=== PATIENT | male | born 1975 | race Caucasian/White ===

== ENCOUNTER 2020-04-06 13:31 | Emergency (ER) | payer BC ==
[~2020-04-06] VITALS: Ht 188 cm; Wt 147.7 kg
[2020-04-06 13:43] VITALS: TEMP 101.1
[2020-04-06 14:29] LABS: BASO % 0.4 % (0.0-2.0); GRAN # 5.3 (1.4-6.5); GRAN % 72.2 % (42.2-75.2); HEMATOCRIT 45.3 % (42.0-52.0); HEMOGLOBIN 16.1 g/dl (13.5-18.0); LYMPH # 1.5 (1.2-3.4); MEAN CELL VOLUME 90 fl (80.0-100.0); MEAN CORPUSCULAR HEMOGLOBIN 32 pg (27.0-31.0); MEAN CORPUSCULAR HGB CONC 36 g/dl (33.0-37.0); MEAN PLATELET VOLUME 10.2 fl (7.4-10.4); MONO # 0.5 (0.1-0.6); MONO % 7.1 % (1.7-9.3); PLATELET COUNT 210 K/mm3 (130-400); RED BLOOD COUNT 5.05 M/mm3 (4.20-5.60); REDCELL DISTRIBUTION WIDTH-CV 12.3 % (11.5-14.5)
[2020-04-06 14:37] LABS: ALANINE AMINOTRANSFERASE 76 U/L (4-49); ALBUMIN 4.3 gm/dL (3.5-5.0); ALKALINE PHOSPHATASE 72 U/L (50-136); ANION GAP 8 mmol/L (7-16); AST,SGOT 68 U/L (15-37); BILIRUBIN,TOTAL 0.7 mg/dL (0.0-1.0); BLOOD UREA NITROGEN 10 mg/dL (9-20); CALCIUM 8.7 mg/dL (8.4-10.2); CARBON DIOXIDE 26 mmol/L (22-30); CHLORIDE 99 mmol/L (98-107); CREATININE, serum 1.17 (0.66-1.25); GLUCOSE 119 mg/dL (74-106); POTASSIUM 4.1 mmol/L (3.4-5.0); SODIUM 133 mmol/L (137-145); TOTAL PROTEIN 7.6 gm/dL (6.4-8.2)
[2020-04-06 14:51] LABS: TROPONIN-I < 0.012 ng/mL (0.000-0.035)
[2020-04-06 16:28] VITALS: BP 148/90; PULSE 89
== END 2020-04-06 16:29 | disposition home or self-care (01) ==
LOC: COL.ER 13:31
PROVIDERS: Nurse Practitioner
DX: U07.1 COVID-19 (principal)

== ENCOUNTER 2020-04-08 14:49 | Inpatient (IN) | payer BC ==
[~2020-04-08] VITALS: Ht 188 cm; Wt 150.5 kg
--- NOTE | 2020-04-08 01:22 | NUR ---
PT AWAKE. NO RESP DISTRESS. PT ORIENTED. PT REPORTED ALT LEVEL OF MENTAL STATUS FOR SEVERAL DAYS. AFEBRILE NOW.
[2020-04-08 15:49] LABS: BASO % 0.3 % (0.0-2.0); EOS % 0.2 % (0-4.0); GRAN # 4.3 (1.4-6.5); GRAN % 72.8 % (42.2-75.2); HEMATOCRIT 41.8 % (42.0-52.0); LYMPH # 1.2 (1.2-3.4); LYMPH % 20.5 % (20.0-51.0); MEAN CELL VOLUME 90 fl (80.0-100.0); MEAN CORPUSCULAR HEMOGLOBIN 32 pg (27.0-31.0); MEAN CORPUSCULAR HGB CONC 36 g/dl (33.0-37.0); MEAN PLATELET VOLUME 10.6 fl (7.4-10.4); MONO # 0.4 (0.1-0.6); MONO % 5.9 % (1.7-9.3); PLATELET COUNT 183 K/mm3 (130-400); RED BLOOD COUNT 4.66 M/mm3 (4.20-5.60); REDCELL DISTRIBUTION WIDTH-CV 12.3 % (11.5-14.5)
[2020-04-08 15:58] LABS: BILIRUBIN,TOTAL 0.5 mg/dL (0.0-1.0); CALCIUM 8.2 mg/dL (8.4-10.2); CREATININE, serum 1.06 (0.66-1.25); POTASSIUM 4.1 mmol/L (3.4-5.0)
--- NOTE | 2020-04-08 19:45 | NUR ---
ADMITTED FROM ER TO ROOM 319 PER CART W/MASK ON. AWAKE ALERT & ORIENTED. NO RESP DISTRESS. TRANSFERRED INTO BED. DIEGO MEMBRENO REPORTED TO THIS NURSE.
[2020-04-08] MEDS ORDERED: IBU600 MG PO (22:09)
[2020-04-08 22:10] VITALS: BP 132/72; PULSE 85; TEMP 100.1
--- NOTE | 2020-04-08 22:34 | NUR ---
DR COLON HERE TO VISIT WITH PT. PT REMAINS IN COVID UNIT. NS AT 100CC/HR.
[2020-04-08 23:51] VITALS: BP 146/79; PULSE 71; TEMP 97.5
[2020-04-09] VITALS (7 sets, daily range): BP systolic 134–152; BP diastolic 57–91; PULSE 64–84; TEMP 97.5–100.7
--- NOTE | 2020-04-09 00:24 | NUR ---
PT SLEEPING. NO RESP DISTRESS.
--- NOTE | 2020-04-09 03:25 | NUR ---
TELEMETRY CALLED. SGORT RUN OF SVT. CHECKED PT. WAKES EASILY. NO COMPLAINTS.
--- NOTE | 2020-04-09 05:49 | NUR ---
PT HAS HAD NO N/V OR DIARRHEA SINCE ADMIT. MENTAL STATUS CLEAR AND ORIENTED. HAS BEEN RESTING WELL. NO COMPLAINTS.
[2020-04-09 07:01] LABS: BASO % 0.2 % (0.0-2.0); GRAN # 3.1 (1.4-6.5); GRAN % 67.9 % (42.2-75.2); HEMATOCRIT 42.3 % (42.0-52.0); HEMOGLOBIN 14.6 g/dl (13.5-18.0); LYMPH # 1.1 (1.2-3.4); LYMPH % 24.5 % (20.0-51.0); MEAN CELL VOLUME 91 fl (80.0-100.0); MEAN CORPUSCULAR HEMOGLOBIN 32 pg (27.0-31.0); MEAN CORPUSCULAR HGB CONC 35 g/dl (33.0-37.0); MEAN PLATELET VOLUME 11.3 fl (7.4-10.4); MONO # 0.3 (0.1-0.6); MONO % 7.2 % (1.7-9.3); PLATELET COUNT 220 K/mm3 (130-400); RED BLOOD COUNT 4.63 M/mm3 (4.20-5.60); REDCELL DISTRIBUTION WIDTH-CV 12.4 % (11.5-14.5)
[2020-04-09 07:14] LABS: CALCIUM 8.1 mg/dL (8.4-10.2); CREATININE, serum 0.89 (0.66-1.25); POTASSIUM 4.3 mmol/L (3.4-5.0)
--- NOTE | 2020-04-09 12:17 | NUR ---
SW update: Attempted call to spouse for assessment Cristiane , no answer. Unable to chat with patient directly. Will attempt again.
--- NOTE | 2020-04-09 13:47 | NUR ---
Plan to return home with and children. Assessment: SW obtained assessment via phone. Patient reports that he resides locally with Cristiane . Patient reports that he has supports with his , denies having any DME use or a pcp. Patient reports that he uses [facility]. Patient indicated that he is starting primary care in April with [facility], Patient reports that he was told that he may need oxygen when he goes home. will help with transports. Declines any concerns with needed hhs. SW educated on supports and services. Will continue to monitor.
[2020-04-10 03:30] VITALS: BP 147/87; PULSE 90; TEMP 103.3
--- NOTE | 2020-04-10 04:16 | NUR ---
Pt has had a difficult night. He has had a headache, body aches, and general fatigue. This patient's o2 requirements have increased tonight from 2L to 5L. This patient is very tearful, and wants to be home. He states that his whole body hurts. He did get a [place] for the pain in his back, and overall pain. Pt is breathing poorly. His breaths are unequal, shallow and fast. This RN did educate him on the deep breathing and coughing he should be doing to combat the PNA. The pt has not had any BM's this shift, but has had good urinary output. Pt is very thirsty, and contiues to ask for ice and water. He has had chills, and his T-max has been 103.3. The o2 requirements are concerning, and this RN will continue to monitor, Call light is within reach, and pt has water on bedside table. No further concerns at this time.
--- NOTE | 2020-04-10 07:00 | NUR ---
Report received from HASEEB Yañez. Will resume care of pt at this time.
[2020-04-10 07:41] LABS: BASO % 0.2 % (0.0-2.0); GRAN # 9.4 (1.4-6.5); GRAN % 81.6 % (42.2-75.2); HEMATOCRIT 39.2 % (42.0-52.0); HEMOGLOBIN 13.8 g/dl (13.5-18.0); LYMPH # 1.5 (1.2-3.4); LYMPH % 13.1 % (20.0-51.0); MEAN CELL VOLUME 91 fl (80.0-100.0); MEAN CORPUSCULAR HEMOGLOBIN 32 pg (27.0-31.0); MEAN CORPUSCULAR HGB CONC 35 g/dl (33.0-37.0); MONO # 0.6 (0.1-0.6); MONO % 4.8 % (1.7-9.3); PLATELET COUNT 256 K/mm3 (130-400); REDCELL DISTRIBUTION WIDTH-CV 12.6 % (11.5-14.5)
[2020-04-10 07:52] LABS: ALBUMIN 3.5 gm/dL (3.5-5.0); BILIRUBIN,TOTAL 0.7 mg/dL (0.0-1.0); CREATININE, serum 1.03 (0.66-1.25); POTASSIUM 3.7 mmol/L (3.4-5.0); TOTAL PROTEIN 6.4 gm/dL (6.4-8.2)
[2020-04-10 08:46] VITALS: BP 121/67; PULSE 80; TEMP 99.2
--- NOTE | 2020-04-10 09:00 | NUR ---
Assessment charted. Pt increased 02 to 5LNC to maintain saturations of 91%. Pt doing well but has headache at 6/10, PRN pain meds given and cough medicine given. Pt resting in bed, states he gets short of breath when getting up to bathroom. INT to RA/C bothersome, called [facility] and they are busy most of day. Facetime in room with , requesting occupational therapist called [employer] as well. Pt skin is flushed, temp this am and 99.2. Will continue to monitor.
[2020-04-10 11:33] VITALS: BP 112/73; PULSE 90; TEMP 101.5
--- NOTE | 2020-04-10 14:11 | NUR ---
Initial help; Nurse called for patient requesting "Anointing of the sick." visited patient.
[2020-04-10 15:52] VITALS: BP 144/82; PULSE 81; TEMP 98.6
--- NOTE | 2020-04-10 16:30 | NUR ---
PATIENT WAS CALM IN THE ROOM,DENIES PAIN.PATIENT DENIES TO HAVE A BATH AT THIS TIME.ENCOURAGED TO TAKE ORALLY.INFORMED ABOUT CONVALESCENT PLASMA.NO CONCERNS AT THIS TIME.
--- NOTE | 2020-04-10 17:30 | NUR ---
Pt has had a good day. Was able to break fever this afternoon, diaphoretic. 02 at 5L NC. Resting in bed, able to take in some PO. Denies N/V/D. Will give report to nightshift nurse who will resume care.
--- NOTE | 2020-04-10 19:24 | NUR ---
PT LAYING IN BED AT THIS TIME. ON 5L NC, SATTING 93%. PT HAS NO COMPLAINTS. TOOK SOME COUGH MEDICATIONS. CALL LIGHT WITHIN REACH, NO FURTHER CONCERNS.
[2020-04-10 19:30] VITALS: BP 134/83; PULSE 77; TEMP 100.1
--- NOTE | 2020-04-10 21:54 | NUR ---
PT IS RESTING IN BED AND DENIES ANY NEEDS AT THIS TIME. CALL LIGHT IS WITHIN REACH.
[2020-04-11] VITALS (7 sets, daily range): BP systolic 121–156; BP diastolic 73–99; PULSE 62–79; TEMP 98.1–99.8
[2020-04-11 06:02] LABS: GRAN % 76.1 % (42.2-75.2); HEMATOCRIT 38.4 % (42.0-52.0); HEMOGLOBIN 13.5 g/dl (13.5-18.0); LYMPH # 1.1 (1.2-3.4); LYMPH % 14.5 % (20.0-51.0); MEAN CELL VOLUME 90 fl (80.0-100.0); MEAN CORPUSCULAR HEMOGLOBIN 32 pg (27.0-31.0); MEAN CORPUSCULAR HGB CONC 35 g/dl (33.0-37.0); MEAN PLATELET VOLUME 10.7 fl (7.4-10.4); MONO # 0.7 (0.1-0.6); MONO % 8.9 % (1.7-9.3); PLATELET COUNT 284 K/mm3 (130-400); RED BLOOD COUNT 4.27 M/mm3 (4.20-5.60); REDCELL DISTRIBUTION WIDTH-CV 12.6 % (11.5-14.5)
[2020-04-11 06:12] LABS: CALCIUM 8.4 mg/dL (8.4-10.2); CREATININE, serum 0.69 (0.66-1.25); POTASSIUM 3.7 mmol/L (3.4-5.0)
--- NOTE | 2020-04-11 09:30 | NUR ---
Assessment complete. Patient sitting up in bed on entry, coughing and requesting pain medication. PRN pain medication provided. Patient states that he had a good night but doesnt feel the greatest this morning. No fever and satting well on current oxygen level. Minimal pain, headache related to the coughing, pt states he woud rather just take cough medication at this point. IV site CD&I, flushed better positionally. No othr needs. Will continue to monitor. Call light is in reach.
--- NOTE | 2020-04-11 18:07 | NUR ---
Patient had uneventful shift. Remains on 5L of O2. States he feels better than he did this morning. Denied need for cough medication when asked at this time. Headache was reported mid day and [place] was given, this helped. No complaints since. Call light is in reach.
[2020-04-12 03:53] VITALS: BP 140/80; PULSE 65; TEMP 98.7
[2020-04-12 06:57] LABS: BASO % 0.1 % (0.0-2.0); EOS % 0.1 % (0-4.0); GRAN # 6.1 (1.4-6.5); GRAN % 72.8 % (42.2-75.2); HEMOGLOBIN 13.9 g/dl (13.5-18.0); LYMPH # 1.5 (1.2-3.4); LYMPH % 17.7 % (20.0-51.0); MEAN CELL VOLUME 92 fl (80.0-100.0); MEAN CORPUSCULAR HEMOGLOBIN 32 pg (27.0-31.0); MEAN CORPUSCULAR HGB CONC 35 g/dl (33.0-37.0); MEAN PLATELET VOLUME 10.6 fl (7.4-10.4); MONO # 0.7 (0.1-0.6); MONO % 8.6 % (1.7-9.3); PLATELET COUNT 299 K/mm3 (130-400); RED BLOOD COUNT 4.35 M/mm3 (4.20-5.60); REDCELL DISTRIBUTION WIDTH-CV 12.6 % (11.5-14.5)
[2020-04-12 07:07] LABS: CALCIUM 8.2 mg/dL (8.4-10.2); CREATININE, serum 0.74 (0.66-1.25); POTASSIUM 3.7 mmol/L (3.4-5.0)
[2020-04-12 08:24] VITALS: BP 160/85; PULSE 70; TEMP 98
--- NOTE | 2020-04-12 11:30 | NUR ---
Assessment complete. Patient sitting up in bed at this time, coughing, requesting PRN cough medications, this was proivded to him. No complaints of pain at this time. States he would like to sit up for his meals, told him this was doable. Pt ambulated well to the chair for breakfast, dyspnea while ambulating and minimal dizziness. He also requested a shower today, this will get done. no other needs. Call light is in reach.
[2020-04-12 13:05] VITALS: BP 150/88; PULSE 71; TEMP 99
[2020-04-12 16:52] VITALS: BP 149/89; PULSE 64; TEMP 97.7
--- NOTE | 2020-04-12 18:20 | NUR ---
Patient had a good day. Up to the chair multiple times through the day. He is eager to get the convalescent plasma. Headache was his only complaint, CODIE oshea was helpful with this. No other needs were expressed. Call light is in reach.
[2020-04-12 20:33] VITALS: BP 142/81; PULSE 73; TEMP 97.5
[2020-04-13] VITALS (7 sets, daily range): BP systolic 126–148; BP diastolic 72–94; PULSE 61–80; TEMP 97.5–98.8
[2020-04-13 06:20] LABS: HEMATOCRIT 39.9 % (42.0-52.0); HEMOGLOBIN 13.8 g/dl (13.5-18.0); MEAN CELL VOLUME 91 fl (80.0-100.0); MEAN CORPUSCULAR HEMOGLOBIN 31 pg (27.0-31.0); MEAN CORPUSCULAR HGB CONC 35 g/dl (33.0-37.0); MEAN PLATELET VOLUME 10.1 fl (7.4-10.4); PLATELET COUNT 381 K/mm3 (130-400); REDCELL DISTRIBUTION WIDTH-CV 12.3 % (11.5-14.5)
[2020-04-13 06:31] LABS: CALCIUM 8.2 mg/dL (8.4-10.2); CREATININE, serum 0.74 (0.66-1.25); POTASSIUM 3.8 mmol/L (3.4-5.0)
[2020-04-13 07:33] LABS: BAND 4 % (0-10); EOSINOPHIL 1 % (0-4); LYMPHOCYTE 24 % (20.0-51.0); METAMYELOCYTE 1 % (0-0); NEUTROPHILS 63 % (42.0-75.2); PLATELET ESTIMATE NORMAL (NORMAL)
--- NOTE | 2020-04-13 09:00 | NUR ---
Assessment complete. Pt sitting up in chair, A&O x 4, denies pain at this time, reports "feeling ok, but having occasional moments of what I think is anxiety." O2 at 5 L/min via NC. PICC line to right upper arm without s/s of complications. No further needs reported. Call light in reach.
[2020-04-13 11:58] LABS: ALBUMIN 3.2 gm/dL (3.5-5.0); BILIRUBIN UNCONJUGATED 0.4 mg/dL (0.0-1.1); BILIRUBIN,DIRECT 0.2 mg/dL (0.0-0.4); BILIRUBIN,TOTAL 0.6 mg/dL (0.0-1.0); TOTAL PROTEIN 6.4 gm/dL (6.4-8.2)
--- NOTE | 2020-04-13 12:30 | NUR ---
Pt reports waking from slight rest and feeling increased headache and slightly harder to breathe, requesting O2 being increased back to where it was this morning. Currently O2 at 4 L/min via NC and sats 88%. O2 increased to 5 L/min and pt instructed to take deep breaths in through nose. After some time O2 sats increase to 95% and stabilize there. PRN cough medication administered per request. No further needs reported. Call light in reach.
--- NOTE | 2020-04-13 15:28 | NUR ---
Pt's called and updated per pt's request. Questions invited and answered.
--- NOTE | 2020-04-13 20:25 | NUR ---
Patient assessed at this time. Alert and oriented x 4, and able to make needs known. Reported level 6 pain to right side. Given PRN [place] for pain. PICC to TAYLOR. Denies SOB and dyspnea. Continues on oxygen at 5 L/min via NC. LS CTA in upper lobes, diminished in lower. Respirations even and unlabored. HRR. Telemetry in place: normal sinus. Capillary refill less than 3 seconds. Non-tenting skin turgor. BSAx4. Abdomen soft and non-tender. No edema. Voices no questions, needs, or concerns at this time. Given cough medicine as requseted for cough. Continues on contact/droplet isolation for Covid.
[2020-04-14 04:25] VITALS: BP 146/86; PULSE 66; TEMP 97.6
--- NOTE | 2020-04-14 06:44 | NUR ---
Patient received PRN cough medicine with codeine about every 4 hours during the night. Received PRN Mode once during the night. Continues on oxygen at 5 L/min via NC. Voices no further questions, needs, or concerns at this time. Resting in bed wtih call light within reach.
[2020-04-14 07:55] LABS: HEMATOCRIT 39.6 % (42.0-52.0); HEMOGLOBIN 13.9 g/dl (13.5-18.0); MEAN CELL VOLUME 92 fl (80.0-100.0); MEAN CORPUSCULAR HEMOGLOBIN 32 pg (27.0-31.0); MEAN CORPUSCULAR HGB CONC 35 g/dl (33.0-37.0); MEAN PLATELET VOLUME 10.2 fl (7.4-10.4); PLATELET COUNT 415 K/mm3 (130-400); RED BLOOD COUNT 4.32 M/mm3 (4.20-5.60); REDCELL DISTRIBUTION WIDTH-CV 12.5 % (11.5-14.5)
[2020-04-14 08:06] LABS: CALCIUM 8.3 mg/dL (8.4-10.2); CREATININE, serum 0.78 (0.66-1.25); POTASSIUM 3.9 mmol/L (3.4-5.0)
[2020-04-14 08:38] LABS: BAND 1 % (0-10); LYMPHOCYTE 19 % (20.0-51.0); NEUTROPHILS 71 % (42.0-75.2); PLATELET ESTIMATE INCREASED (NORMAL)
[2020-04-14 09:05] VITALS: BP 145/95; PULSE 66; TEMP 98
--- NOTE | 2020-04-14 10:56 | NUR ---
MMORNING MEDS given. PT AOX4. reports usual pain to rt flank from cough but none at this time. did receive PRN cough syrup without codeine as requested. browm sputum noted at bedside. pt steady independent ambulation. remains on 5L oxygen. convalescent plasma expected today per report and blood bank will call. no other needs at this time
[2020-04-14 12:30] VITALS: BP 143/95; PULSE 75; TEMP 98.3
[2020-04-14 16:19] VITALS: BP 135/97; PULSE 87; TEMP 98.7
--- NOTE | 2020-04-14 19:23 | NUR ---
EOS NOTE: PT AOX4. continues cough and given guafenesin without codeine every 4 hrs when available per pt request. no new concerns. Blood bank called and unable to obtain convalescent plasma today with anticipated day being tomorrow. blood bank to double check with Ryan on ETA.
[2020-04-14 19:37] VITALS: BP 135/78; PULSE 73; TEMP 97.8
--- NOTE | 2020-04-14 20:45 | NUR ---
Patient assessed at this time. Alert and oriented x 4, and able to make needs known. Reported pain to right side. Given PRN [place] as requested. Double lumen PICC to TAYLOR. Denies SOB and dyspnea. On oxygen at 4 L/min via NC. LS CTA in upper lobes, diminished in lower. Respirations even and unlabored. Continues to have cough. Given medication as requested. Telemetry in place. HRR. Capillary refill less than 3 seconds. Non-tenting skin turgor. BSAx4. Abdomen soft and non-tender. No edema. Continues on isolation per protocol. Voices no questions, needs, or concerns at this time. Resting in bed with call light within reach.
[2020-04-15 00:08] VITALS: BP 126/74; PULSE 66; TEMP 98
[2020-04-15 04:13] VITALS: BP 143/97; PULSE 57; TEMP 96.6
--- NOTE | 2020-04-15 05:43 | NUR ---
Patient has been resting in bed. Given PRN [place] and Robitussin as requested at beginning of shift. Has not requested any further PRN medications this shift. Voices no questions, needs, or concerns at this time. Call light within reach.
[2020-04-15 08:31] VITALS: BP 143/85; PULSE 75; TEMP 98.9
--- NOTE | 2020-04-15 10:44 | NUR ---
SW Received confirmation of O2 need-2 for dc home, will setup and support upon dc.
--- NOTE | 2020-04-15 10:46 | NUR ---
PT WALKED BACK AND FORTH IN ROOM ON ROOM AIR, SPO2 DROPPED TO 87%. PT STATED HE FELT A LITTLE DIZZY. BACK TO CHAIR TO REST ON 2 LPM SPO2 92% RN AND SURFACE LAY OUT TECHNICIAN NOTIFIED.
--- NOTE | 2020-04-15 11:21 | NUR ---
Respiratory therapy report that patient is eligible for home oxygen when discharging.
[2020-04-15 11:33] VITALS: BP 134/87; PULSE 72; TEMP 98.1
[2020-04-15] MEDS ORDERED: MONODOX100 PO (11:48)
[2020-04-15] MEDS ORDERED: RT Albuterol HFA MDI IH (11:48)
[2020-04-15] MEDS ORDERED: DECADRON6 MG PO (11:49)
[2020-04-15] MEDS ORDERED: TYLENOL 325MG325 MG PO (11:49)
[2020-04-15] MEDS ORDERED: PROAIR HFA0.09 MG/AC IH (11:49)
[2020-04-15] MEDS ORDERED: NORCO 325 MG-51 TAB PO (11:52)
[2020-04-15] MEDS ORDERED: CHERATUSSIN AC120 ML PO (11:52)
[2020-04-15] MEDS ORDERED: ROBITUSSIN100 MG/5 M PO (11:52)
[2020-04-15] MEDS ORDERED: OXYGEN (11:55)
--- NOTE | 2020-04-15 11:57 | NUR ---
Patient alert and oriented. On 4L 02 this am. requested for Robitussin for cough. Patient will be discharging with 02. picc catheter to be removed by Jumana, Charge nurse.
--- NOTE | 2020-04-15 13:06 | NUR ---
Faxed order with request for [address] [facility]. Awaiting semiconductor testing group leader to responds.
--- NOTE | 2020-04-15 17:01 | NUR ---
picc discontinued. provided patient with picc removal care and discharge instruction and new home medication . patient discharge home with on 2-3L of Oxygen. patient have no further question and concern at this time.
== END 2020-04-15 15:00 | disposition home or self-care (01) | DRG 177 ==
LOC: COL.ER 14:49 → MEDICAL 18:44
PROVIDERS: Family Medicine; Nurse Practitioner Family; ADMIT Student in an Organized Health Care Education/Training Program
PROC: XW033E5 Introduction of Remdesivir Anti-infective into Peripheral Vein, Percutaneous Approach, New Technology Group 5 (ICD-10-PCS; principal; 2020-04-09)
DX: U07.1 COVID-19 (principal); J96.01 Acute respiratory failure with hypoxia; J12.82 Pneumonia due to coronavirus disease 2019; Z68.41 Body mass index [BMI] 40.0-44.9, adult; R94.5 Abnormal results of liver function studies; E66.9 Obesity, unspecified; K76.0 Fatty (change of) liver, not elsewhere classified
CPT/HCPCS: 99222-AI; 99231-AI; 99232-AI; 99239; C1751; C1892; C9113; J0456; J0696; J1100; J1650; J2405; J7030; J7050; J8540; Q9967